=== PATIENT | female | born 1985 | race Asian ===

== ENCOUNTER 2020-01-18 00:43 | Day surgery (SDC) | payer OTHER, SELFPAY ==
[2020-01-06 10:24] VITALS: BMI 20.7
[2020-01-18] VITALS (8 sets, daily range): BP systolic 114–139; BP diastolic 68–83; PULSE 64–94; RESP 12–18; TEMP 36.6–37.7; O2SAT 99–100
[2020-01-18] MEDS: OXYMETAZOLINE HCL 0.05% NAS 15 ML BTL (*BKC) 1 SPRAY NASAL (06:50)
[2020-01-18] MEDS: LACTATED RINGERS 1,000 ML 30 ML IV CONT ×2 (06:55→08:57)
--- NOTE | 2020-01-18 07:08 | WPDANESEPPF ---
Anes - Initial Pre Proc Eval Procedure: Operation Date: 01/18/20 07:30 Proposed Procedures p Bilateral Frontal Sinusotomy, Bilateral Ethmoidectomy, Bilateral Sphenoidotomy, Bilateral Maxillary Antrostomy, Bilateral Turbinate Reduction, With Fusion Protocol - Tato Isabel MD s Possible Septoplasty - Tato Isabel MD Date/Time: 01/18/20 07:08 Surgeon: Tato Isabel MD Pre Op Diagnosis: Nasal Polyps/ Chronic Sinusitis Patient Data Age: 34 Gender: F Height: 5 ft 5 in Weight: 56.7 kg Allergies Allergy/AdvReac Type Severity Reaction Status Date / Time No Known Allergies Allergy Unverified 01/06/20 10:24 Home Medications Medication Instructions Recorded Confirmed Type escitalopram oxalate 5 mg tablet 5 mg PO DAILY #30 tablet 12/08/19 01/06/20 Rx multivitamin 1 tablet PO DAILY 01/06/20 01/06/20 History Patient hx anesthesia problems: other (motion sickness) Family hx anesthesia problems: none PMFSH Surgical History Surgical History History of sinus surgery Social History Social History Smoking status: Never smoker Alcohol intake: never Anes - Eval Final PreProcedure Day of Procedure 01/18/20 07:08 Patient weight: normal Heart: regular rate and rhythm Lungs: clear to auscultation Airway: Mallampati scale class II Neurological: alert and oriented Last oral intake: >/= 8 hours ASA classification: II Emergent: no Anesthetic plan: proceed Anesthesia type and monitoring: general ETT and standard monitoring Informed Consent: The patient's anesthetic plan and its attendant risks and benefits were discussed with the patient/family/POA. Questions were solicited and answers provided to the satisfaction of the patient/family/POA.
[2020-01-18] MEDS: LIDO 1%/EPINEPHRINE 1:100,000 20 ML VIAL 5 ML INFILTRATE (07:26)
--- NOTE | 2020-01-18 07:32 | PM.IMHP ---
H&P: HPI History of Present Illness Chief complaint: Nasal Polyps/ Chronic Sinusitis Narrative: Federico Bella is a 34 year old female with chronic sinusitis Review of Systems Review of Systems: All systems reviewed & are unremarkable except as noted in HPI and below [facility] Surgical History Surgical History History of sinus surgery Social History Social History Smoking status: Never smoker Alcohol intake: never Meds Home Medications and Allergies Home Medications Medication Instructions Recorded Confirmed Type escitalopram oxalate 5 mg tablet 5 mg PO DAILY #30 tablet 12/08/19 01/18/20 Rx multivitamin 1 tablet PO DAILY 01/06/20 01/18/20 History Allergies Allergy/AdvReac Type Severity Reaction Status Date / Time No Known Allergies Allergy Unverified 01/18/20 07:15 Vital Signs Vital Signs - 24 hr 01/18/20 06:51 Temperature 37.7 C H Pulse Rate 94 Respiratory Rate 18 Blood Pressure 120/83 Pulse Oximetry 100 Exam Narrative: Exam Narrative: chronic sinusitis Assessment and Plan Assessment and plan (1) Sinusitis chronic, frontal: Code(s): J32.1 - Chronic frontal sinusitis Status: Acute Assessment and Plan: Endoscopic sinus surgery, possible septoplasty and turbin[facility]
[2020-01-18] MEDS: ceFAZolin 2 GM/D5W 50 ML 2 GM/50 ML BAG IVPB (07:37)
--- NOTE | 2020-01-18 08:49 | PM.PROC ---
Procedure Note - Detailed Date of procedure: 01/18/20 Pre-op diagnosis: Nasal Polyps/ Chronic Sinusitis Chronic sinusitis Post-op diagnosis: same Procedure performed: Bilateral frontal sinusotomy, total ethmoidectomy, maxillary antrostomy, sphenoidotomy, turbinoplasty, image guidance, left frontal irrigation Description of procedure: On the date of procedure the patient was met in the preoperative area and risk and benefits of the procedure reviewed with the patient as documented in the H&P and they elected to proceed with surgery. Patient was brought back to the operating room by the anesthesia team and underwent general endotracheal anesthesia. Once an adequate plane of anesthesia was obtained a timeout was performed to assure the patient identification the patient here to be performed were correct. They were.The patient was then prepped and draped in the normal fashion for endoscopic sinus surgery. The diffusion image guidance system was calibrated and used for the entire case. Afrin-soaked pledgets were placed in the nasal cavities bilaterally. The entire case was performed under endoscopic visualization. Nasal endoscopy was performed at the beginning of the case. 1% lidocaine with 1:100,000 epinephrine was then injected into the root of the middle turbinate and lateral nasal wall. Attention was first directed towards the left side. The middle turbinate was medialized and the osteomeatal complex was identified with a ayah probe. Using a 90 degree backbiter, the uncinate process was reflected anteriorly and removed using a combination of sharp and powered dissection. The maxillary antrostomy was then created and widened by identifying the natural ostia and opening the sinus with straight michelet-cut forceps, backbiter, and microdebrider. Continuing with the microdebrider, the anterior ethmoid bulla was opened. Careful dissection was carried out posteriorly, through the basal lamella and posterior ethmoid cells until the sphenoid rostrum was identified. A Mary suction bluntly identified the sphenoid os and the opening was widened with microdebrider and mushroom punch to 5mm. Purulent fluid removed from left sphenoid. Using an image guided curved suction as well as J-curette, the posterior most ethmoid cell was identified and the ethmoids were bluntly fractured and dissected from posterior to anterior along the base of the skull. The remaining bone fragments were removed with appropriate curved instruments and microdebrider. Next, The right maxillary antrostomy, ethmoidectomy and sphenoidotomy were carried out in identical fashion. Some infected material within the right sphenoid as well. Upon completion of these portions of the procedure, attention was returned to the left side and using image guided seeker and suction, the frontal ostia was entered, widened and significant infected material removed. Several irrigations made to remove all purulent fluid and mucous. An angled biting instrument used to remove fragments of agar nasi cell to widen the antrostomy. The right side was performed in an identical fashion without purulent fluid in the sinus. No clinical evidence of CSF throughout the case. With all sinuses opened and no remaining infection appreciated, nasopore packing was placed in the ethmoid acvities bilaterally. Hemostasis was ensured. Lastly, the bilateral inferior turbiantes were reduced submucosally using 2mm microdebrider and then outfractured with a sayer elevator. This significantly opened the airway. At this point, the procedure was concluded. Care the patient was transferred back to the anesthesia team and the patient was awoke in the operating room and transferred back to the PACU in stable condition. Tato Isabel M.D. Anesthesia: GETA Surgeon: Tato Isabel MD Estimated blood loss (mL): 30 Drains: No Packing: Yes (nasopore) Pathology: none sent Complications: No immediate complications Condition: stable Disposition: P
== END 2020-01-18 10:52 | disposition home or self-care (01) ==
PROVIDERS: PCP Family Medicine; Visit Provider Otolaryngology
PROC: (CPT 31253; principal; 2020-01-18 07:30)
DX: J32.1 Chronic frontal sinusitis (principal); J33.9 Nasal polyp, unspecified
CPT/HCPCS: 31253; 61782; 31256; 31257; 30140; A9270; J0330; J0690; J1100; J2250; J2405; J2704; J3010; J7120

== ENCOUNTER 2020-03-28 09:47 | Outpatient (CLI) | payer OTHER, SELFPAY ==
--- NOTE | ~2020-03-28 | CT_ITS ---
EXAMINATION: CT sinus wo con DATE: 03/28/2020 10:08 INDICATION: Sinus pressure, pain. Surgery in January 2020. TECHNIQUE: Computed tomography (CT) of the paranasal sinuses was performed without contrast. Iterativ e reconstruction technique was employed. Exam dose: 290.55 mGy-cm total exam DLP. COMPARISON: 10/23/2019 CT sinuses FINDINGS: There is mild leftward bowing of the nasal septum. Bilateral nasal antral windows. The nasal turbinates are moderately prominent, relatively symmetric. There is interlamellar cell of b oth middle nasal turbinates and suggestion of bilateral minimal middle nasal turbinate opacified conc young bullosa. There is persistent complete opacification of the left frontal sinus and extensive opacification of t he left ethmoid air cells. The right frontal sinus is normally developed and aerated. There is soft tissue thickening in the posterior right ethmoid air cells. There is mild to moderate mucoperiosteal thickening of the right sphenoid sinus and left maxillary si nus. Right maxillary sinus and left sphenoid sinus are clear. The mastoid air cells are normally developed and aerated. Middle and inner ear apparatus appear umair l. IMPRESSION: Bilateral nasal antral windows Interlamellar cell of both middle nasal turbinates and probable minimal bilateral opacified middle na mina turbinate che bullosa Persistent complete opacification of left frontal sinus and extensive left ethmoid air cell opacifica tion Mild to moderate mucoperiosteal thickening of right sphenoid and left maxillary sinuses Reviewed, dictated and finalized at [facility]. Reviewed, dictated and finalized at [facility]. IMPRESSION: Bilateral nasal antral windows Interlamellar cell of both middle nasal turbinates and probable minimal bilater al opacified middle nasal turbinate che bullosa Persistent complete opacification of left frontal sinus and extensive left ethm oid air cell opacification Mild to moderate mucoperiosteal thickening of right sphenoid and left maxillary sinuses
== END 2020-03-28 09:48 | disposition home or self-care (01) ==
PROVIDERS: PCP Family Medicine; Visit Provider Otolaryngology
DX: J32.4 Chronic pansinusitis (principal)
CPT/HCPCS: 70486

== ENCOUNTER 2020-05-20 01:02 | Outpatient (CLI) | payer OTHER, SELFPAY ==
[2020-05-20 18:06] LABS: SARS-CoV-2 RNA PCR Negative
== END 2020-05-20 01:03 | disposition home or self-care (01) ==
LOC: ANHCOVIDDT 01:03
PROVIDERS: PCP Family Medicine; Visit Provider Otolaryngology
DX: Z01.812 Encounter for preprocedural laboratory examination (principal); Z11.59 Encounter for screening for other viral diseases
CPT/HCPCS: 87635; C9803; U0003

== ENCOUNTER 2020-05-23 02:56 | Day surgery (SDC) | payer OTHER, SELFPAY ==
[2020-05-09 17:40] VITALS: BMI 20.1
[2020-05-23] VITALS (9 sets, daily range): BP systolic 90–122; BP diastolic 47–77; PULSE 66–114; RESP 9–28; TEMP 36.1–36.4; O2SAT 97–100
[2020-05-23] MEDS: LACTATED RINGERS 1,000 ML 30 ML IV CONT (06:50)
[2020-05-23] MEDS: ACETAMINOPHEN 500 MG TABLET 1000 MG PO (06:52)
--- NOTE | 2020-05-23 07:27 | PM.IMHP ---
H&P: HPI History of Present Illness Chief complaint: Chronic Pansinusitis Narrative: Federico Bella is a 34 year old female with chronic sinusitis Review of Systems Review of Systems: All systems reviewed & are unremarkable except as noted in HPI and below PMFSH Past Medical History Medical History Adjustment disorder with depressed mood Restless leg syndrome Surgical History Surgical History History of sinus surgery Social History Social History Smoking status: Never smoker Second hand tobacco smoke exposure: No Alcohol intake: never Substance use: never Substance use type: does not use Living arrangements: with family Spiritual care concerns: No Meds Home Medications and Allergies Home Medications Medication Instructions Recorded Confirmed Type multivitamin 1 tablet PO DAILY 01/06/20 05/23/20 History alprazolam 0.25 mg PO PRN 05/09/20 05/23/20 History escitalopram oxalate [Lexapro] 10 mg PO HS 05/09/20 05/23/20 History trazodone 50 mg PO HS 05/23/20 05/23/20 History Allergies Allergy/AdvReac Type Severity Reaction Status Date / Time No Known Allergies Allergy Unverified 05/23/20 06:54 Vital Signs Vital Signs - 24 hr 05/23/20 06:37 Temperature 36.1 C L Pulse Rate 81 Respiratory Rate 18 Blood Pressure 122/74 Pulse Oximetry 100 Exam Narrative: Exam Narrative: residual disease in left frontal and ethmoid sinus Assessment and Plan Assessment and plan (1) Sinusitis chronic, frontal: Code(s): J32.1 - Chronic frontal sinusitis Status: Acute Assessment and Plan: Plan for image guided revision of left frontal sinus. Refer to outpatient H&P for full details.
--- NOTE | 2020-05-23 07:52 | WPDANESEPPF ---
Anes - Initial Pre Proc Eval Procedure: Operation Date: 05/23/20 08:30 Proposed Procedures p Left Frontal Sinusotomy, Left Ethmoidectomy, With Fusion Protocol - Tato Isabel MD Date/Time: 05/23/20 07:52 Surgeon: Tato Isabel MD Pre Op Diagnosis: Chronic Pansinusitis Patient Data Age: 34 Gender: F Height: 5 ft 5 in Weight: 57.1 kg Last Vital Signs Temp 96.9 F L 05/23/20 06:37 Pulse 81 05/23/20 06:37 Resp 18 05/23/20 06:37 BP 122/74 05/23/20 06:37 Pulse Ox 100 05/23/20 06:37 Allergies Allergy/AdvReac Type Severity Reaction Status Date / Time No Known Allergies Allergy Unverified 05/23/20 06:54 Home Medications Medication Instructions Recorded Confirmed Type multivitamin 1 tablet PO DAILY 01/06/20 05/23/20 History alprazolam 0.25 mg PO PRN 05/09/20 05/23/20 History escitalopram oxalate [Lexapro] 10 mg PO HS 05/09/20 05/23/20 History trazodone 50 mg PO HS 05/23/20 05/23/20 History Patient hx anesthesia problems: none Family hx anesthesia problems: none PMFSH Past Medical History Medical History Adjustment disorder with depressed mood Restless leg syndrome Surgical History Surgical History History of sinus surgery Social History Social History Smoking status: Never smoker Second hand tobacco smoke exposure: No Alcohol intake: never Substance use: never Substance use type: does not use Living arrangements: with family Spiritual care concerns: No Anes - Eval Final PreProcedure Day of Procedure 05/23/20 07:52 Patient weight: normal Heart: regular rate and rhythm Lungs: clear to auscultation Airway: Mallampati scale class II Neurological: alert and oriented Last oral intake: >/= 8 hours ASA classification: II Emergent: no Anesthetic plan: proceed Anesthesia type and monitoring: general ETT and standard monitoring Informed Consent: The patient's anesthetic plan and its attendant risks and benefits were discussed with the patient/family/POA. Questions were solicited and answers provided to the satisfaction of the patient/family/POA.
[2020-05-23] MEDS: OXYMETAZOLINE HCL 0.05% NAS 15 ML BTL (*BKC) 1 SPRAY NASAL (08:05)
[2020-05-23] MEDS: ceFAZolin 2 GM/D5W 50 ML 2 GM/50 ML BAG IVPB (08:55)
[2020-05-23] MEDS: LIDO 1%/EPINEPHRINE 1:100,000 20 ML VIAL 10 ML INFILTRATE (09:17)
--- NOTE | 2020-05-23 09:46 | PM.PROC ---
Procedure Note - Detailed Date of procedure: 05/23/20 Pre-op diagnosis: Chronic Pansinusitis Post-op diagnosis: same Procedure performed: Revision left frontal sinusotomy, ethmoidectomy under image guidance Description of procedure: On the date of surgery the left side was marked and consent was verified. The patient was taken to the OR and placed under GETA. Diffusion image guidance was calibrated to her imaging and accuracy verified. The nasal passages examined endoscopically. Afrin soaked cottonoids were placed on the left. 1% lidocaine with 1:100k epinephrine was infiltrated into the middle turbinate. Image guided probe was used to identify the natural os of the frontal sinus and enter it. Purulent fluid encountered. The frontal suction was placed in the sinus and more purulent fluid removed. The sinus was irrigated copiously. Next, a J-curette, frontal sinus forceps and microdebrider used to remove the superior/posterior wall of the aggar nasi cell to create a significantly enlarged opening of the frontal sinus. Satisfied with a very large antrostomy, Nasopore placed in the recess and care of the patient returned to anesthesia who extubated her, woke her up and transferred her to PACU for recovery in stable condition without complication. Anesthesia: GETA Surgeon: Tato Isabel MD Estimated blood loss (mL): 10 Drains: No Packing: Yes (nasopore) Pathology: none sent Complications: No immediate complications Condition: stable Disposition: same day Findings: Opacified and purulent left frontal sinus.
== END 2020-05-23 11:38 | disposition home or self-care (01) ==
PROVIDERS: PCP Family Medicine; Visit Provider Otolaryngology
PROC: (CPT 31254; principal; 2020-05-23 08:30)
DX: J32.4 Chronic pansinusitis (principal); F43.21 Adjustment disorder with depressed mood; G25.81 Restless legs syndrome
CPT/HCPCS: 31254; 31276; 61782; 87635; A9270; C9803; J0330; J0690; J2250; J2405; J2704; J3010; J7120; U0003

== ENCOUNTER 2020-09-30 10:50 | Outpatient (CLI) | payer OTHER, SELFPAY ==
[2020-10-01 19:10] LABS: SARS-CoV-2 RNA PCR Negative
== END 2020-09-30 10:51 | disposition home or self-care (01) ==
LOC: CHSLAB 10:53
PROVIDERS: PCP Family Medicine; Visit Provider Family Medicine
DX: R52 Pain, unspecified (principal); Z20.828 Contact with and (suspected) exposure to other viral communicable diseases
CPT/HCPCS: 87635; C9803; U0003

== ENCOUNTER 2021-02-21 10:00 | Outpatient (CLI) | payer OTHER, SELFPAY | END 2021-02-21 10:01 | disposition home or self-care (01) | LOC: ANHCOVIDVC 10:00 | PROVIDERS: PCP Family Medicine | DX: Z23 Encounter for immunization (principal) | CPT/HCPCS: 0001A; 91300 ==

== ENCOUNTER 2021-03-14 10:01 | Outpatient (CLI) | payer OTHER, SELFPAY | END 2021-03-14 10:02 | disposition home or self-care (01) | LOC: ANHCOVIDVC 10:01 | PROVIDERS: PCP Family Medicine | DX: Z23 Encounter for immunization (principal) | CPT/HCPCS: 0002A; 91300 ==

== ENCOUNTER 2021-06-10 11:22 | Outpatient (CLI) | payer OTHER, SELFPAY ==
[2021-06-10 11:36] LABS: Basophils Absolute Auto 0.03 K/mm3 (0.00-0.10); Basophils Percent Auto 0.6 % (0.0-1.0); Eosinophils Absolute Auto 0.19 K/mm3 (0.02-0.50); Hemoglobin 12.6 g/dL (12.0-15.0); Immature Granulocyte Absolute 0.01 K/mm3 (0.00-0.00); Immature Granulocyte Percent A 0.2 % (0.0-0.0); Lymphocytes Absolute Auto 1.47 K/mm3 (1.10-4.50); Lymphocytes Percent Auto 30.6 % (18.0-42.0); Mean Corpuscular HGB Conc 33.2 g/dL (32.0-36.0); Mean Corpuscular Volume 87.4 fL (78.0-102.0); Mean Platelet Volume 9.1 fl (9.2-11.8); Monocytes Absolute Auto 0.31 K/mm3 (0.10-0.90); Monocytes Percent Auto 6.5 % (2.0-11.0); Neutrophils Absolute Auto 2.8 K/mm3 (1.7-7.2); Neutrophils Percent Auto 58.1 % (50.0-70.0); Platelet Count Result 231 K/mm3 (150-420); Red Blood Count 4.35 M/mm3 (4.20-5.40); Red Cell Distribution Width 12.3 % (11.6-14.4); White Blood Count 4.8 K/mm3 (4.8-10.8)
[2021-06-10 12:10] LABS: Alanine Aminotransferase 34 U/L (14-59); Alkaline Phosphatase 53 U/L (46-116); Anion Gap 10 mmol/L (8-16); Aspartate Amino Transferase 21 U/L (15-37); Bilirubin,Total 0.3 mg/dL (0.00-1.00); Blood Urea Nitrogen 7 mg/dL (7-18); Calcium 8.5 mg/dL (8.5-10.1); Carbon Dioxide 26 mmol/L (21-32); Chloride 104 mmol/L (98-108); Estimated Glomerular Filt Rate > 60; Glucose 96 mg/dL (70-99); Osmolality Calculated 288 mOsm/kg (285-295); Sodium 140 mmol/L (136-145); Thyroid Stimulating Hormone 2.16 uIU/mL (0.36-3.74); Total Protein 7.5 g/dL (6.4-8.2)
== END 2021-06-10 11:23 | disposition home or self-care (01) ==
LOC: CHSLAB 11:24
PROVIDERS: PCP Family Medicine; Visit Provider Family Medicine
DX: R53.83 Other fatigue (principal)
CPT/HCPCS: 36415; 80053; 84443; 85025

== ENCOUNTER 2021-07-25 07:45 | Outpatient (CLI) | payer OTHER, SELFPAY ==
--- NOTE | 2021-08-09 17:15 | WPDHOMESLEEP ---
Sleep Study - Home Unattended Date of Study: 07/25/21 Ordering Provider: Sanket Cabrera MD Interpreting Provider: Nannette Tapia MD Home Sleep Study Type: Watch PAT Height: 1.63 m Weight: 64.864 kg Body Mass Index: 24.5 Neck Circumference (inches): 12.75 Reason for Sleep Study hypersomnia Sleep History Federico Bella is a 36-year-old female with history of major depression on medication. Dr Cabrera's note states that she is on Escitalopram 20 mg a day. She has restless legs syndrome and is on iron with vitamin-C. She did not complete a sleep questionnaire therefore information about her sleep problem is limited. She does report an abnormal sleep pattern. She has difficulty sleeping at night and she feels fatigued in the day. She has had 2 frontal sinus surgeries. FOR[facility]LY [facility], [facility] Past Medical History Medical History Adjustment disorder with depressed mood Migraine Restless leg syndrome Surgical History Surgical History History of ethmoidectomy History of sinus surgery Social History Social History (Updated 08/07/21 @ 15:54 by Nichole Mohamud [facility]) Smoking status: Never smoker Second hand tobacco smoke exposure: No Alcohol intake: never Substance use: never Substance use type: does not use Spiritual care concerns: No Medications Home Medications Medication Instructions Recorded Confirmed Type multivitamin 1 tablet PO DAILY 01/06/20 06/26/21 History alprazolam 0.25 mg PO PRN 05/09/20 06/26/21 History trazodone 50 mg PO HS 05/23/20 06/26/21 History naproxen 500 mg tablet 500 mg PO BID #60 tablet 11/08/20 06/26/21 Rx escitalopram oxalate 20 mg tablet 20 mg PO DAILY #90 tablet 05/22/21 06/26/21 Rx Sleep Procedure The sleep study was completed using WatchPAT a technically adequate device with seven channels: peripheral arterial tone, actigraphy, body position, snore, respiratory movement, pulse oximetry, sleep staging, and heart rate. Prior to using the device, the patient received verbal and written instructions for its application and was provided with the help desk phone number for additional telephonic instruction with 24-hour availability of qualified personnel to answer questions. Sleep Architecture Recording duration 7 hours 41 minutes. Sleep duration 5 hours 48 minutes. Sleep latency 50 minutes prolonged. REM latency 103 minutes. There were 11 awakenings. The patient spent 25% of the study awake after sleep onset. Sleep efficiency is 75%. Sleep architecture showed 61% light sleep, 22% deep sleep 17% REM. She had 3 REM cycles. respirations. She spent 80% of the night in the supine position. Respiratory Analysis The apnea-hypopnea index is 0.5 associated with 3 events, normal. There is no evidence of Richard-Valenzuela Oximetry Data The lowest saturation is 93%. Mean saturation 96%. There were 3 desaturations of 4% to 9%. No time was spent below 88%. Snoring Profile Snoring was present, mean intensity is 41 decibels. The patient snored above 45 decibels for 10.5 minutes, 3% of sleep time. Cardiac Profile Minimum pulse 56, maximum pulse 97. Average pulse 69. 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 Her apnea-hypopnea index is 0.5. Her saturation minimum is 93% which is normal. She had mild snoring noted. She does take escitalopram and has known restless legs syndrome. Her sleep may be disrupted by limb movements. SSRIs can cause leg movements at night which can disrupt sleep. There is no significant indication that she has s
[2021-08-09 17:34] VITALS: BMI 24.5
== END 2021-07-31 11:42 | disposition home or self-care (01) ==
LOC: ANHCSM 07:46
PROVIDERS: PCP Family Medicine; Visit Provider Family Medicine
DX: G47.20 Circadian rhythm sleep disorder, unspecified type (principal)
CPT/HCPCS: 95800

== ENCOUNTER 2021-09-15 16:18 | Outpatient (CLI) | payer OTHER, SELFPAY ==
[2021-09-19 07:31] LABS: Prolactin 9.2 ng/mL (***)
== END 2021-09-15 16:19 | disposition home or self-care (01) ==
LOC: CHSLAB 16:21
PROVIDERS: PCP Family Medicine; Visit Provider Obstetrics & Gynecology
DX: N97.0 Female infertility associated with anovulation (principal)
CPT/HCPCS: 36415; 84144; 84146

== ENCOUNTER 2022-05-16 10:45 | Outpatient (CLI) | payer OTHER, SELFPAY ==
--- NOTE | ~2022-05-16 | MMUS_ITS ---
. EXAMINATION: MM diagnostic leighann BI w claudia, US breast LT limited HISTORY: Palpable left breast abnormality TECHNIQUE: Additional 3-D tomosynthesis images of the breasts were performed and synthetic 2-D images were generated. CAD analysis was submitted and interpreted. High resolution Limited left breast ultr asound was performed. COMPARISON: None BREAST PARENCHYMAL COMPOSITION: The breasts are heterogenously dense, which may obscure small masses FINDINGS: MAMMOGRAPHIC FINDINGS: There are no suspicious masses, calcifications or architectural distortion in either breast to sugges t malignancy. ULTRASOUND: Limited left breast ultrasound: At 3:00 near the nipple in the area of palpable concern there is a matson perficial oval shaped hypoechoic mass with parallel orientation and it and internal vascularity measu ring 6 x 4 x 8 mm. No definite mammographic correlate is identified. IMPRESSION: 1. Hypoechoic left breast mass in the area of palpable concern measuring 8 x 6 x 4 mm with internal v ascularity. 2. Ultrasound-guided left breast biopsy recommended. BI-RADS category 4, suspicious findings. Reviewed, dictated and finalized at [facility] IMPRESSION: 1. Hypoechoic left breast mass in the area of palpable concern measuring 8 x 6 x 4 mm with internal vascularity. 2. Ultrasound-guided left breast biopsy recommended. BI-RADS category 4, suspicious findings.
== END 2022-05-16 10:46 | disposition home or self-care (01) ==
LOC: CHSIMG 10:50
PROVIDERS: PCP Family Medicine; Visit Provider Family Medicine
DX: N60.02 Solitary cyst of left breast (principal)
CPT/HCPCS: 76642; 77062; 77066; G0279